=== PATIENT | male | born 1965 | race Caucasian/White ===

== ENCOUNTER 2017-01-22 00:25 | Observation (INO) | payer MEDICAID, OTHER ==
[2017-01-22] VITALS (10 sets, daily range): BP systolic 93–129; BP diastolic 52–74; PULSE 47–69; RESP 15–20; TEMP 97.5–98.5; O2SAT 95–99
[~2017-01-22] VITALS: Ht 182.9 cm; Wt 88.0 kg
[2017-01-22] MEDS ORDERED: SODIUM CHLORIDE 0.9% FLUSH 10 ML FLUSH IVF PRN (02:00)
[2017-01-22 02:36] LABS: AUTOMATED NEUTROPHIL # 11.1 TH/MM3 (1.8-7.7); BASOPHIL % 0.2 % (0.0-2.0); EOSINOPHIL # 0.1 TH/MM3 (0-0.4); EOSINOPHIL % 0.6 % (0.0-4.0); HEMATOCRIT 49.2 % (39.0-51.0); HEMO FLAGS DIFF FINAL; LYMPHOCYTE # 1.5 TH/MM3 (1.0-4.8); MEAN CELL VOLUME 95.4 FL (80.0-100.0); MEAN CORPUSCULAR HEMOGLOBIN 32.3 PG (27.0-34.0); MEAN CORPUSCULAR HGB CONC 33.8 % (32.0-36.0); MONO % 6.1 % (0.0-8.0); NEUT % 82.1 % (16.0-70.0); PLATELET COUNT 241 TH/MM3 (150-450); RED BLOOD COUNT 5.16 MIL/MM3 (4.50-5.90); RED CELL DISTRIBUTION WIDTH 13.2 % (11.6-17.2); WHITE BLOOD COUNT 13.5 TH/MM3 (4.0-11.0)
--- NOTE | 2017-01-22 03:05 | PD ---
HPI . Syncope Chief Complaint: Syncope/Near-Syncope Time Seen by Provider: 01:54 Travel History International Travel<30 days: No Contact w/Intl Traveler<30days: No Traveled to known affect area: No History of Present Illness HPI Patient presents following a syncopal event. He states that he was at work tonight and was standing up when he suddenly felt dizzy and had some mild blurred vision. He states that his legs got weak. He states that he stood there is again that he is probably going to be okay. The next thing that he knew, he woke up on the floor. He denies associated injury. He states that he feels fine now. He denies any chest pain. He denies any headache. He denies or vomiting. Bystanders didn't report that he was cool and clammy. reports that he may have had a similar episode within the last couple of months. They are not completely clear about that. PFSH Past Medical History Medical other: Yes (eye problem) Musculoskeletal: Yes (bursitis) Past Surgical History Tonsillectomy: Yes Social History Alcohol Use: Yes Tobacco Use: Yes (1ppd) Substance Use: Yes (marijuana) Allergies-Medications (Allergen,Severity, Reaction): Coded Allergies: Penicillin (Verified Allergy, Severe, 01/22/17) Reported Meds & Prescriptions Reported Meds & Active Scripts Active No Active Prescriptions or Reported Medications Review of Systems Except as stated in HPI: all other systems reviewed are Neg Eyes: Positive: Blurred Vision HENT: No: Headaches Cardiovascular: No: Chest Pain or Discomfort Respiratory: No: Shortness of Breath Gastrointestinal: No: Nausea, Vomiting Genitourinary: No: Incontinence Musculoskeletal: No: Myalgias, Arthralgias, Limited ROM Skin: Positive Other (reportedly cool and clammy following the event) Neurologic: Positive: Syncope, No: Focal Abnormalities, Ataxia, Headache, Slurred Speech, Paresthesia, Incontinence, Seizures Physical Exam Narrative GENERAL: This is a healthy-appearing man who is in no acute distress. SKIN: Warm and dry. HEAD: Atraumatic. Normocephalic. EYES: Pupils equal and round. Extraocular movements are intact. ENT: No nasal bleeding or discharge. Mucous membranes pink and moist. NECK: Trachea midline. Neck is supple. CARDIOVASCULAR: Regular rate and rhythm. He is noted to have some irregular beats. He was not on the monitor at the time that I was examining him so I cannot say for sure whether these were PACs or PVCs. RESPIRATORY: No accessory muscle use. His lungs are clear with full air movement throughout. GASTROINTESTINAL: Abdomen soft, non-tender, nondistended. There is no pulsatile abdominal mass. MUSCULOSKELETAL: No obvious deformities. No edema. NEUROLOGICAL: Awake and alert. No obvious cranial nerve deficits. Motor grossly within normal limits. Normal speech. PSYCHIATRIC: Appropriate mood and affect; insight and judgment normal. Data Data Last Documented VS Vital Signs Date Time Temp Pulse Resp B/P Pulse Ox O2 Delivery O2 Flow Rate FiO2 01/22/17 02:33 17 99 Room Air 01/22/17 00:29 98.5 69 129/74 Orders Electrocardiogram (01/22/17 01:54) Basic Metabolic Panel (Bmp) (01/22/17 01:54) Complete Blood Count With Diff (01/22/17 01:54) Ckmb (Isoenzyme) Profile (01/22/17 01:54) Troponin I (01/22/17 01:54) Ecg Monitoring (01/22/17 01:54) Iv Access Insert/Monitor (01/22/17 01:54) Oximetry (01/22/17 01:54) Sodium Chloride 0.9% Flush (Ns Flush) (01/22/17 02:00) D-Dimer (01/22/17 02:41) CKMB (01/22/17 02:20) CKMB% (01/22/17 02:20) Labs Laboratory Tests Test 01/22/17 02:20 White Blood Count 13.5 TH/MM3 Red Blood Count 5.16 MIL/MM3 Hemoglobin 16.6 GM/DL Hematocrit 49.2 % Mean Corpuscular Volume 95.4 FL Mean Corpuscular Hemoglobin 32.3 PG Mean Corpuscular Hemoglobin 33.8 % Concent Red Cell Distribution Width 13.2 % Platelet Count 241 TH/MM3 Mean Platelet Volume 7.9 FL Neutrophils (%) (Auto) 82.1 % Lymphocytes (%) (Auto) 11.0 % Monocytes (%) (Auto) 6.1 % Eosinophils (%) (Auto) 0.6 % Basophils (%) (Auto) 0.2 % Neutrophils # (Auto) 11.1 TH/MM3 Lymphocytes # (Auto) 1.5 TH/MM3 Monocytes # (Auto) 0.8 TH/MM3 Eosinophils # (Auto) 0.1 TH/MM3 Basophils # (Auto) 0.0 TH/MM3 CBC Comment DIFF FINAL Differential Comment D-Dimer Quantitative (PE/DVT) 0.30 MG/L FEU Sodium Level 140 MEQ/L Potassium Level 4.4 MEQ/L Chloride Level 103 MEQ/L Carbon Dioxide Level 33.0 MEQ/L Anion Gap 4 MEQ/L Blood Urea Nitrogen 13 MG/DL Creatinine 1.06 MG/DL Estimat Glomerular Filtration 73 ML/MIN Rate Random Glucose 75 MG/DL Calcium Level 10.2 MG/DL Total Creatine Kinase 120 U/L Creatine Kinase MB 1.6 NG/ML Troponin I LESS THAN 0.02 NG/ML MDM Medical Decision Making Medical Screen Exam Complete: Yes Emergency Medical Condition: Yes Medical Record Reviewed: Yes (no visits for any significant medical problems in the past) Interpretation(s) EKG shows a sinus rhythm with no ST segment elevation or depression. He has no old EKGs for comparison. Differential Diagnosis My differential diagnosis of syncope includes but is not limited to cardiac arrhythmia, hypovolemia, anemia, neurological catastrophe, vasovagal response Narrative Course Patient presents following a syncopal event. CBC & BMP Diagram 01/22/17 02:20 Initial cardiac enzymes are negative. D-dimer is normal. Diagnosis Primary Impression: Syncope Qualified Code: R55 - Syncope, unspecified syncope type Admitting Information Admitting Physician Requests: Observation Scripts No Active Prescriptions or Reported Meds Condition: Stable Araceli Lemos MD Jan 22, 2017 03:05
[2017-01-22 03:19] LABS: ANION GAP 4 MEQ/L (5-15); BLOOD UREA NITROGEN 13 MG/DL (7-18); CHLORIDE 103 MEQ/L (98-107); CREATINE KINASE 120 U/L (39-308); GLOMERULAR FILTRATION RATE 73 ML/MIN (>89); POTASSIUM 4.4 MEQ/L (3.5-5.1); SODIUM (NA) 140 MEQ/L (136-145)
[2017-01-22 04:04] LABS: CKMB 1.6 NG/ML (0.5-3.6)
[2017-01-22] MEDS ORDERED: ACETAMINOPHEN/HYDROcodone 325 MG/5 MG TAB PO PRN (04:30)
[2017-01-22] MEDS ORDERED: ONDANSETRON HCL 4 MG/2 ML VIAL IVP PRN (04:30)
[2017-01-22] MEDS ORDERED: SODIUM CHLORIDE 0.9% FLUSH 10 ML FLUSH IV FLUSH PRN (04:30)
[2017-01-22] MEDS ORDERED: ACETAMINOPHEN 325 MG TAB PO PRN (04:30)
[2017-01-22] MEDS ORDERED: MORPHINE SULFATE 4 MG/ML INJ IV PRN (04:30)
[2017-01-22] MEDS ORDERED: BISACODYL 10 MG SUPP RECTAL PRN (04:30)
[2017-01-22] MEDS: SODIUM CHLOR 0.9% 1000 ML INJ 1,000 ML IV SCH ×2 (04:46→17:47)
--- NOTE | 2017-01-22 04:54 | RADRPT ---
EXAM DATE/TIME: 01/22/2017 04:28 [facility] COMPARISON: No previous studies available for comparison. INDICATIONS : Dizziness; syncopal episode. MEDICAL HISTORY : None. SURGICAL HISTORY : None. ENCOUNTER: Initial ACUITY: 1 day PAIN SCORE: 0/10 LOCATION: Bilateral chest FINDINGS: The cardiac silhouette is normal in transverse diameter. The lungs are free of acute parenchymal opac ity. No effusions are identified. The aortic knob is prominent with tortuosity of the descending thor acic aorta. There are chronic fibrotic changes bilaterally. CONCLUSION: 1. No acute cardiopulmonary disease. Sanket Howard MD on January 22, 2017 at 4:51 Board Certified Radiologist. This report was verified electronically.
--- NOTE | 2017-01-22 05:14 | HHI.HP ---
[facility] Service [place] [facility] Primary Care Physician No Primary Care Physician Admission Diagnosis syncope Diagnoses: (1) Syncope Diagnosis: Principal (2) Bradycardia Diagnosis: Principal (3) Dehydration Diagnosis: Principal (4) Hypercalcemia Diagnosis: Principal (5) Leukocytosis (6) Tobacco abuse Diagnosis: Principal Travel History International Travel<30 Days: No Contact w/Intl Traveler <30 Da: No Traveled to Known Affected Are: No History of Present Illness This is a 51-year-old male with a PMH of Tobacco Abuse who presented to the ER after syncopal event. 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 EMS called, however pt had refused transport to ER. ultimately convinced him to be evaluated and he presented to ER. States similar event approx 2 months ago however pt doesn't recall specifics, "I think I passed out, but I'm not sure". On arrival, BP 129/74, HR 69, O2 sat 98% on RA, Afebrile. While in the ER, HR 40 to 50s. No h/o bradycardia, not currently on medication. WBC 13.5 mildly elevated neutrophil count. GFR 73. Calcium 10.2. Troponin negative. D-dimer negative. CXR with no acute findings. Patient currently without complaints. Review of Systems Except as stated in HPI: all other systems reviewed are Neg ROS: 14 point review of systems otherwise negative. Past Family Social History Past Medical History PMH: Tobacco Abuse Past Surgical History PAST SURGICAL HISTORY: Tonsillectomy Allergies: Coded Allergies: Penicillin (Verified Allergy, Severe, 01/22/17) Family History PAST FAMILY HISTORY: Reviewed. No h/o DM or CAD Social History PAST SOCIAL HISTORY: Occasional alcohol. Smokes 1ppd. Positive for Marijuana. Physical Exam Vital Signs Vital Signs Date Time Temp Pulse Resp B/P Pulse Ox O2 Delivery O2 Flow Rate FiO2 01/22/17 04:47 47 15 118/65 98 Room Air 01/22/17 02:33 17 99 Room Air 01/22/17 02:22 15 Room Air 01/22/17 00:29 98.5 69 16 129/74 98 Room Air Physical Exam PE: GENERAL: Extremely pleasant middle-aged white male in no acute distress. at bedside. HEENT: PERRLA, EOMI. No scleral icterus or conjunctival pallor. No lid lag or facial droop. CARDIOVASCULAR: Bradycardia. No obvious murmurs to auscultation. No chest tenderness to palpation. RESPIRATORY: No obvious rhonchi or wheezing. Clear to auscultation. Breath sounds equal bilaterally. GASTROINTESTINAL: Abdomen soft, non-tender, nondistended. BS normal. MUSCULOSKELETAL: Extremities without clubbing, cyanosis, or edema. No obvious deformities. NEUROLOGICAL: Awake, alert and oriented x4. No focal neurologic deficits. Moving both upper and lower extremities spontaneously. Laboratory Laboratory Tests Test 01/22/17 02:20 White Blood Count 13.5 Red Blood Count 5.16 Hemoglobin 16.6 Hematocrit 49.2 Mean Corpuscular Volume 95.4 Mean Corpuscular Hemoglobin 32.3 Mean Corpuscular Hemoglobin 33.8 Concent Red Cell Distribution Width 13.2 Platelet Count 241 Mean Platelet Volume 7.9 Neutrophils (%) (Auto) 82.1 Lymphocytes (%) (Auto) 11.0 Monocytes (%) (Auto) 6.1 Eosinophils (%) (Auto) 0.6 Basophils (%) (Auto) 0.2 Neutrophils # (Auto) 11.1 Lymphocytes # (Auto) 1.5 Monocytes # (Auto) 0.8 Eosinophils # (Auto) 0.1 Basophils # (Auto) 0.0 CBC Comment DIFF FINAL Differential Comment D-Dimer Quantitative (PE/DVT) 0.30 Sodium Level 140 Potassium Level 4.4 Chloride Level 103 Carbon Dioxide Level 33.0 Anion Gap 4 Blood Urea Nitrogen 13 Creatinine 1.06 Estimat Glomerular Filtration 73 Rate Random Glucose 75 Calcium Level 10.2 Total Creatine Kinase 120 Creatine Kinase MB 1.6 Troponin I LESS THAN 0.02 Result Diagram: 01/22/1721901/22/17219 Assessment and Plan Problem List: (1) Syncope ICD Code: R55 Status: Acute (2) Bradycardia ICD Code: R00.1 Status: Acute (3) Dehydration ICD Code: E86.0 Status: Acute (4) Hypercalcemia ICD Code: E83.52 Status: Acute (5) Leukocytosis ICD Code: D72.829 Status: Acute (6) Tobacco abuse ICD Code: Z72.0 Status: Acute Assessment and Plan A/P: 1. Syncope: acute c/o dizziness while at work w/ sudden syncopal event, no head trauma reported, no witnessed seizure activity. Trop negative, EKG w/ no acute ischemia. Likely multifactorial-secondary to dehydration compounded w/ bradycardia. Admit for Observation, telemetry, check serial cardiac enzymes, check Echo. Cardiology consult as needed. 2. Bradycardia: Unclear if symptomatic bradycardia, HR 69 on arrival, however while in ER HR persistently 40-50's. No h/o bradycardia in the past, not on medications. Telemetry, check Echo. 3. Dehydration: GFR 73, IVF for hydration, check U/a to eval for UTI. 4. Hypercalcemia: Ca 10.2, IVF, repeat labs in am. 5. Leukocytosis: WBC 13.5 w/ elevated neutrophil count, CXR w/ no acute findings, images reviewed by me. U/a pending, will follow. IVF, repeat labs in am. 6. Tobacco Abuse: Pt counselled. Ativan prn if needed. 7. DVT Prophylaxis: SCD/Teds. 8. Social work for d/c planning as needed. 9. Case discussed w/ ER physician at length. Problem Qualifiers (1) Syncope: Qualified Code: R55 - Syncope, unspecified syncope type Yeimi Matthews MD Jan 22, 2017 05:14
[2017-01-22 05:26] LABS: BLOOD, URINE NEG (NEG); COMMENT (UR) CULT NOT INDICATED; CULTURE IF INDICATED CULT NOT INDICATED; GLUCOSE,URINE 150 mg/dL (NEG); HYALINE CAST, URINE 6 /lpf (RARE); KETONE, URINE NEG (NEG); MUCUS URINE FEW /lpf (OCC); NITRITE,URINE NEG (NEG); PH, URINE 5.5 (5.0-8.5); SQUAMOUS EPITHELIAL CELL URINE <1 /hpf (0-5); URINE COLOR YELLOW (YELLW/STRAW)
[2017-01-22] MEDS: SODIUM CHLORIDE 0.9% FLUSH 10 ML FLUSH IV FLUSH SCH ×2 (09:00→20:53)
[2017-01-22 10:49] LABS: AUTOMATED NEUTROPHIL # 5.7 TH/MM3 (1.8-7.7); BASOPHIL % 0.2 % (0.0-2.0); EOSINOPHIL # 0.1 TH/MM3 (0-0.4); HEMATOCRIT 43.7 % (39.0-51.0); HEMO FLAGS DIFF FINAL; LYMPH % 22.1 % (9.0-44.0); LYMPHOCYTE # 1.8 TH/MM3 (1.0-4.8); MEAN CELL VOLUME 94.9 FL (80.0-100.0); MEAN CORPUSCULAR HEMOGLOBIN 32.2 PG (27.0-34.0); MEAN CORPUSCULAR HGB CONC 33.9 % (32.0-36.0); MONO % 6.5 % (0.0-8.0); NEUT % 70.2 % (16.0-70.0); PLATELET COUNT 227 TH/MM3 (150-450); RED BLOOD COUNT 4.61 MIL/MM3 (4.50-5.90); WHITE BLOOD COUNT 8.2 TH/MM3 (4.0-11.0)
[2017-01-22 11:02] LABS: BICARBONATE 28.4 MEQ/L (21.0-32.0); POTASSIUM 3.8 MEQ/L (3.5-5.1)
--- NOTE | 2017-01-22 14:00 | EKG ---
Date Performed: 01/22/2017 Time Performed: 02:09:24 PTAGE: 51 years EKG: SINUS BRADYCARDIA WITHIN NORMAL LIMITS NORMAL ECG NO PREVIOUS TRACING DOCTOR: Matt Larios Interpretating Date/Time 01/22/2017 13:59:54
[2017-01-23] VITALS (8 sets, daily range): BP systolic 95–107; BP diastolic 54–69; PULSE 40–68; RESP 18–21; TEMP 96.1–98.7; O2SAT 93–99
[2017-01-23] MEDS: SODIUM CHLOR 0.9% 1000 ML INJ 1,000 ML IV SCH (02:09)
[2017-01-23 04:43] LABS: AUTOMATED NEUTROPHIL # 4.1 TH/MM3 (1.8-7.7); BASOPHIL # 0.1 TH/MM3 (0-0.2); BASOPHIL % 0.7 % (0.0-2.0); EOSINOPHIL # 0.2 TH/MM3 (0-0.4); EOSINOPHIL % 2.7 % (0.0-4.0); HEMATOCRIT 42.5 % (39.0-51.0); HEMO FLAGS DIFF FINAL; LYMPH % 37.1 % (9.0-44.0); LYMPHOCYTE # 2.9 TH/MM3 (1.0-4.8); MEAN CELL VOLUME 95.1 FL (80.0-100.0); MEAN CORPUSCULAR HEMOGLOBIN 32.5 PG (27.0-34.0); MEAN CORPUSCULAR HGB CONC 34.2 % (32.0-36.0); MONO % 6.5 % (0.0-8.0); PLATELET COUNT 216 TH/MM3 (150-450); RED BLOOD COUNT 4.47 MIL/MM3 (4.50-5.90); RED CELL DISTRIBUTION WIDTH 13.2 % (11.6-17.2); WHITE BLOOD COUNT 7.7 TH/MM3 (4.0-11.0)
[2017-01-23 05:13] LABS: ALKALINE PHOSPHATASE 53 U/L (45-117); ALT (GPT) 24 U/L (12-78); ANION GAP 6 MEQ/L (5-15); AST (GOT) 14 U/L (15-37); BICARBONATE 28.5 MEQ/L (21.0-32.0); BLOOD UREA NITROGEN 12 MG/DL (7-18); CHLORIDE 106 MEQ/L (98-107); GLOMERULAR FILTRATION RATE 100 ML/MIN (>89); POTASSIUM 4.2 MEQ/L (3.5-5.1); SODIUM (NA) 140 MEQ/L (136-145); TOTAL BILIRUBIN ADULT 0.7 MG/DL (0.2-1.0)
[2017-01-23] MEDS: SODIUM CHLORIDE 0.9% FLUSH 10 ML FLUSH IV FLUSH SCH ×2 (08:36→19:48)
--- NOTE | 2017-01-23 11:28 | HHI.PR ---
Subjective Remarks Follow up syncope, and bradycardia. Patient seen and examined today. HR found to be low 38 at 8 am. Patient denies any symptoms at that time, no dizziness, no chest pain, no headaches. He states he had just fallen asleep when the RN came in. He says he last saw a Dr. 3-4 years ago and they said his HR was low but a healthy low. 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 He states the morning he passed out he only had a protein shake, and did not drink much fluids prior. 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 He says he has never seen a cardiology and denies any medical history. Objective Vitals Vital Signs Date Time Temp Pulse Resp B/P Pulse Ox O2 Delivery O2 Flow Rate FiO2 01/23/17 08:00 42 01/23/17 07:36 97.8 68 21 107/58 96 101/65 99/68 01/23/17 04:00 96.1 40 18 101/67 98 01/23/17 00:00 97.9 48 18 95/61 94 01/22/17 21:00 55 01/22/17 19:07 98.3 56 16 104/57 96 120/68 01/22/17 16:00 50 18 93/52 95 01/22/17 11:32 52 18 98/60 95 I/O 01/22/17 01/22/17 01/22/17 01/23/17 01/23/17 01/23/17 07:00 15:00 23:00 07:00 15:00 23:00 Intake Total 2972 ml Balance 2972 ml Intake Oral 500 ml IV Total 2472 ml # Voids 3 Result Diagram: 01/23/17 04301/23/17 043 Other Results Last Impressions Chest X-Ray 01/22/17 042 Signed Impressions: Service Date/Time: Sunday, January 22, 2017 04:28 - CONCLUSION: 1. No acute cardiopulmonary disease. Sanket Howard MD Objective Remarks GENERAL: Well nourished patient in no distress. SKIN: Warm and dry. HEAD: Normocephalic. EYES: No scleral icterus. No injection or drainage. NECK: Supple, trachea midline. No JVD or lymphadenopathy. CARDIOVASCULAR: Bradycardic rate and rhythm without murmurs, gallops, or rubs. RESPIRATORY: Breath sounds equal bilaterally. No accessory muscle use. GASTROINTESTINAL: Abdomen soft, non-tender, nondistended. MUSCULOSKELETAL: No cyanosis, or edema. No calf tenderness BACK: Nontender without obvious deformity. No CVA tenderness. Medications and IVs Current Medications Medications (Trade) Dose Ordered Sig/[place] Route Start Time Stop Time Status Last Admin (NS Flush) 2 ml UNSCH PRN IVF 01/22/17 02:00 (NS Flush) 2 ml UNSCH PRN IV FLUSH 01/22/17 04:30 (NS Flush) 2 ml BID IV FLUSH 01/22/17 09:00 (Zofran Inj) 4 mg Q6H PRN IVP 01/22/17 04:30 (Dulcolax Supp) 10 mg DAILY PRN RECTAL 01/22/17 04:30 (Tylenol) 650 mg Q6H PRN PO 01/22/17 04:30 ([place] 5-325 Mg) 1 tab Q4H PRN PO 01/22/17 04:30 (Morphine Inj) 2 mg Q3H PRN IV 01/22/17 04:30 Urinary Catheter: No Vascular Central Line Catheter: No A/P Problem List: (1) Syncope ICD Code: R55 Status: Acute (2) Bradycardia ICD Code: R00.1 Status: Acute (3) Dehydration ICD Code: E86.0 Status: Acute (4) Hypercalcemia ICD Code: E83.52 Status: Acute (5) Leukocytosis ICD Code: D72.829 Status: Acute (6) Tobacco abuse ICD Code: Z72.0 Status: Acute Assessment and Plan 51 y/o with no medical history presented to the ED after having a syncopal episode at work. He became dizzy at work, had weak legs and he then fell to the ground. He was found to have a low HR upon admission. Syncope: acute c/o dizziness while at work w/ sudden syncopal event, no head trauma reported, no witnessed seizure activity. Trop negative, EKG w/ no acute ischemia. Likely related to dehydration compounded w/ bradycardia. -monitor telemetry -Echo pending. Bradycardia, Unclear if symptomatic bradycardia, HR 69 on arrival, HR 38 at 8AM No h/o bradycardia in the past, not on medications. -Telemetry -Cardiology consulted -AT [address] Quinn at bedside, he recommended holding patient til morning, giving one liter NS for his slightly low blood pressure. He would like to have a 30 day Holter monitoring for the bradycardia, but due to lack of insurance it may be difficult. Case management to evaluate. Dehydration, GFR 73, improved to 100 UA negative -Cont IVF for hydration Hypercalcemia: Ca 10.2, IVF, -resolved Ca 8.6 Leukocytosis: WBC 13.5 w/ elevated neutrophil count, CXR w/ no acute findings, images reviewed by me. U/a pending, will follow. IVF, repeat labs in am. Tobacco Abuse, chronic -Pt counselled DVT Prophylaxis: SCD/Teds. Written by LOIS Johnson acting as scribe for Dr. Quezada on 01/23/17 at 10: 45. Discharge Planning Pending cardiology eval and 2d echo Attending Statement This note was transcribed by scribe Otilia Chau. I, Dr. Ailyn Quezada personally performed the history, physical exam, and medical decision making; and confirmed the accuracy of the information in the transcribed note. Authenticated by Dr. Ailyn Quezada on 01/23/17 at 22:25. Problem Qualifiers (1) Syncope: Qualified Code: R55 - Syncope, unspecified syncope type Otilia Chau Jan 23, 2017 11:09 Ailyn Quezada MD Jan 23, 2017 22:25
--- NOTE | 2017-01-23 16:26 | EC ---
Study Study Date:01/23/2017 STUDY CONCLUSIONS SUMMARY - Left ventricle: The cavity size was normal. Systolic function was normal. The estimated ejection fraction was in the range of 55% to 60%. Wall motion was normal; there were no regional wall motion abnormalities. The study is not technically sufficient to allow evaluation of LV diastolic function. - Pulmonary arteries: PA peak pressure: 39mm Hg (S). If LV function is below 40, please consider prescribing an ACEI or ARB or document rationale for non-use. PROCEDURE DATA STUDY STATUS: Elective. Procedure: Transthoracic echocardiography. Image quality was good. Scanning was performed from the parasternal, apical, and subcostal acoustic windows. Study completion: The patient tolerated the procedure well. Transthoracic echocardiography. M-mode, complete 2D, complete spectral Doppler, and color Doppler. Patient status: Inpatient. CARDIAC ANATOMY LEFT VENTRICLE: The cavity size was normal. Systolic function was normal. The estimated ejection fraction was in the range of 55% to 60%. Wall motion was normal; there were no regional wall motion abnormalities. The study is not technically sufficient to allow evaluation of LV diastolic function. AORTIC VALVE: Probably trileaflet. Doppler: There was no stenosis. No significant regurgitation. MITRAL VALVE: The valve appears to be grossly normal. Doppler: There was no evidence for stenosis. Trace regurgitation. LEFT ATRIUM: The atrium was normal in size. RIGHT VENTRICLE: The cavity size was normal. PULMONIC VALVE: Not well visualized. Doppler: There was no evidence for stenosis. No significant regurgitation. TRICUSPID VALVE: The valve appears to be grossly normal. Doppler: There was no evidence for stenosis. Trace regurgitation. PERICARDIUM: There was no pericardial effusion. BASIC MEASUREMENTS ADULT Normal Left ventricle LV internal dimension, ED, chordal level, *39.3 mm 43-52 PLAX LV internal dimension, ES, chordal level, 28.5 mm 23-38 PLAX Fractional shortening, chordal level, PLAX *27 % >29 LV posterior wall thickness, ED 10.3 mm IVS/LVPW ratio, ED *1.73 <1.3 Ventricular septum Septal thickness, ED 17.8 mm Aortic valve Leaflet separation 23 mm 15-26 Right ventricle RV internal dimension, ED, PLAX 27.8 mm 19-38 BASIC MEASUREMENTS ADULT Normal Aortic valve Leaflet separation 23 mm 15-26 Aorta Root diameter, ED 34 mm 20-37 Left atrium Anterior-posterior dimension, ES 31 mm 19-40 LA/aortic root ratio 0.91 DOPPLER MEASUREMENTS ADULT Normal Main pulmonary artery Pressure, S *39 mm Hg =30 Tricuspid valve Regurgitant peak velocity 267 cm/s Peak RV-RA gradient, S 29 mm Hg Maximal regurgitant velocity 267 cm/s Systemic veins Estimated CVP 10 mm Hg Right ventricle RV pressure, S *39 mm Hg <30 LEGEND: Mean values are shown as u=mean value. Asterisk (*) castro values outside specified normal range. Prepared and signed by Adan Quinn [id number]
[2017-01-23] MEDS ORDERED: SODIUM CHLOR 0.9% 1000 ML INJ 1,000 ML IV SCH (17:00)
--- NOTE | 2017-01-23 17:33 | RADRPT ---
EXAM DATE/TIME: 01/23/2017 17:16 [facility] COMPARISON: No previous studies available for comparison. INDICATIONS : Posterior neck pain, fell MEDICAL HISTORY : None. SURGICAL HISTORY : None. ENCOUNTER: Initial ACUITY: 2 days PAIN SCORE: 3/10 LOCATION: Cervical spine FINDINGS: No appreciable subluxation or soft tissue swelling is seen. Degenerative spondylosis is present at C 5-6 and C6-7 and to a slight degree. IMPRESSION: Unremarkable limited study except for degenerative spondylosis. Ana Rosa Knight MD on January 23, 2017 at 17:30 Board Certified Radiologist. This report was verified electronically.
--- NOTE | 2017-01-23 17:34 | RADRPT ---
EXAM DATE/TIME: 01/23/2017 17:20 [facility] COMPARISON: No previous studies available for comparison. INDICATIONS : Right posterior elbow pain, fell MEDICAL HISTORY : None. SURGICAL HISTORY : None. ENCOUNTER: Initial ACUITY: 2 days PAIN SCORE: 2/10 LOCATION: Right Elbow FINDINGS: No definite fractures, or dislocations are identified. No definite lytic or sclerotic lesion is seen . Soft tissue swelling is seen. IMPRESSION: Unremarkable study except for soft tissue swelling. Ana Rosa Knight MD on January 23, 2017 at 17:32 Board Certified Radiologist. This report was verified electronically.
[2017-01-24 05:46] VITALS: BP 110/67; PULSE 47; RESP 18; TEMP 98.4; O2SAT 97
--- NOTE | 2017-01-24 07:35 | MB ---
cc: ADAN PAGAN DO DATE OF CONSULTATION 01/23/2017 REASON FOR CONSULTATION Syncope HISTORY OF PRESENT ILLNESS Kavon Vázquez is a pleasant 51-year-old male who presents to [facility] on January 22, 2017 due to a syncopal episode. He states that he has had an extremely busy week between working two jobs and having three kids, but in general this is what his weeks have been like. 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 He was standing at one of the tables when he started feeling somewhat lightheaded. He had mild blurry vision with this. He then leaned against the table and was doing alright at that time, but then started getting weak in the legs. He denies any chest pain or palpitations with the event. He then ended up losing consciousness and falling backwards. He had no loss of bowel or bladder, although someone at the table did mention a questionable seizure activity, but no documentation of this just hearsay from the patient's boss to his . The day that he passed out, he felt like ate his usual amount, but did not keep up with his fluids lately. In seeing him this morning, he feels relatively fine. He has been up and walking without complaints. Orthostatics were done in the emergency room and did have a drop in systolic and this is after receiving IV fluids within the emergency room. Lastly, he had an episode overnight where his heart rate was around 38. Upon arrival of the ER staff, he was asymptomatic and felt no lightheadedness. His does report that he may have had an episode a few months ago. It is difficult to place when this happened per him and his and at that time, the patient had no idea where he was and states he may have passed out. It extremely difficult to get more information about this episode as he and his are unsure of where it happened and when it happened. The patient states that he remembers nothing from the episode. PAST MEDICAL HISTORY Tobacco abuse PAST SURGICAL HISTORY Tonsillectomy ALLERGIES PENICILLIN MEDICATIONS Denies SOCIAL HISTORY Smokes one-pack of cigarettes per day. He has a history of marijuana use. Drinks socially. FAMILY HISTORY Denies premature coronary artery disease or sudden cardiac within the family. REVIEW OF SYSTEMS 14-systems were reviewed including osteopathic pertinent positives and negatives as above, otherwise negative. PHYSICAL EXAMINATION VITAL SIGNS: Temperature 98.0, heart rate 52, blood pressure 101/57, respirations 18, pulse ox 98% on room air. GENERAL: The patient appears well in no acute distress, alert awake and oriented x3. HEAD, EYES, EARS, NOSE, AND THROAT: Extraocular muscles intact. Mucous membranes moist. NECK: Supple. No JVD at 45 degrees. No carotid bruits heard bilaterally. Carotid upstroke is brisk in nature. HEART: Regular rhythm, but mildly bradycardic. LUNGS: Clear to auscultation bilaterally. No wheezes, rales or rhonchi. ABDOMEN: Soft, nontender sent no organomegaly noted. EXTREMITIES: Show no clubbing, cyanosis or edema. Femoral and distal pulses intact bilaterally. NEUROLOGIC: No focal deficits. SKIN: Warm, dry and intact. OSTEOPATHICALLY: No kyphoscoliosis, lordosis or paraspinal tender points. LABORATORY FINDINGS Hemoglobin 14.5, hematocrit 42.5, platelets 216. Troponin negative x3. Potassium 4.2, BUN 12, creatinine 0.81, calcium 10.2. Electrocardiogram (January 22, 2017 at 0209) sinus bradycardia at 50 beats per minute. No acute ST-T wave changes. IMPRESSION 1. Syncopal episode possibly due to combination of dehydration, orthostatic hypotension, and bradycardia. 2. Chronic bradycardia for which the patient is most likely asymptomatic. 3. Dehydration 4. Hypercalcemia most likely due to dehydration. 5. Tobacco abuse 6. Positive orthostatic hypotension. RECOMMENDATIONS 1. Kavon Vázquez appears to have had two syncopal episodes. The first episode a few weeks ago is difficult to ascertain exactly why this happened as the patient has no real recollection of it and the does not remember when it happened and did not know where he was at the time. 2. The most recent episode seems to be more along the lines of orthostatic hypotension and blood pooling due to standing for long period of time as well as dehydration. 3. As far as his bradycardia goes, he has always had a low heart rate. Even when his heart rate was in the 30s, he seemed to be asymptomatic from this and this has then less likely to cause a true syncopal event. I would like to put in an event monitor on him for 30 days, but he does not have insurance which does make this more difficult. We will consider a Holter monitor for 24 hours. 4. He has received one liter of normal saline and in revisiting him this afternoon, he still has some mild hypotension (the patient states is normal blood pressure is around 110/60 with his current blood pressure being around 95/55. In discussing with him, we will plan on giving him another liter of fluid and have him continue to walk around to make sure that he feels alright. 5. Would avoid hypotensive and AV blocking AV ponce blocking agents. 6. Echocardiogram showing an ejection fraction of 55-60%. 7. If stable in the morning, we will plan for discharge with a consideration of a Holter monitor so that we can see what his heart rate does during normal activity. 8. I spoke to him for greater than three minutes about tobacco cessation which he will attempt to quit. Thank you for allowing me to see Kavon Vázquez. If there are any questions, please do not hesitate to call. Adan Pagan DO VGP/DJL /10:08 PM /7:19 AM
--- NOTE | 2017-01-24 07:59 | HHI.DCPOC ---
Discharge Care Plan Diagnosis: (1) Syncope (2) Bradycardia (3) Dehydration (4) Tobacco abuse Goals to Promote Your Health * To prevent worsening of your condition and complications * To maintain your health at the optimal level Directions to Meet Your Goals Take your medications as prescribed Follow your dietary instruction Follow activity as directed Keep your appointments as scheduled Take your immunizations and boosters as scheduled If your symptoms worsen call your PCP, if no PCP go to Urgent Care Center or Emergency Room Smoking is Dangerous to Your Health. Avoid second hand smoke Call the 24-hour hour crisis hotline for domestic abuse at Jasmyne Betancur PA-C Jan 24, 2017 07:59
[2017-01-24 08:00] VITALS: PULSE 43
--- NOTE | 2017-01-24 08:20 | PD.CARD.PN ---
Subjective Subjective Remarks Feels well Up and ambulating without problem No chest pain, no shortness of breath Objective Medications Current Medications Medications (Trade) Dose Ordered Sig/[place] Route Start Time Stop Time Status Last Admin (NS Flush) 2 ml UNSCH PRN IVF 01/22/17 02:00 (NS Flush) 2 ml UNSCH PRN IV FLUSH 01/22/17 04:30 (NS Flush) 2 ml BID IV FLUSH 01/22/17 09:00 (Zofran Inj) 4 mg Q6H PRN IVP 01/22/17 04:30 (Dulcolax Supp) 10 mg DAILY PRN RECTAL 01/22/17 04:30 (Tylenol) 650 mg Q6H PRN PO 01/22/17 04:30 ([place] 5-325 Mg) 1 tab Q4H PRN PO 01/22/17 04:30 (Morphine Inj) 2 mg Q3H PRN IV 01/22/17 04:30 Vital Signs / I&O Vital Signs Date Time Temp Pulse Resp B/P Pulse Ox O2 Delivery O2 Flow Rate FiO2 01/24/17 05:46 98.4 47 18 110/67 97 01/23/17 23:54 98.7 51 18 101/63 93 01/23/17 20:00 98.6 56 18 99/54 96 101/69 97/66 01/23/17 16:26 98.1 53 21 95/57 99 01/23/17 11:12 98.0 52 18 101/57 98 I/O 01/23/17 01/23/17 01/23/17 01/24/17 01/24/17 01/24/17 07:00 15:00 23:00 07:00 15:00 23:00 Intake Total 2972 ml Balance 2972 ml Intake Oral 500 ml IV Total 2472 ml # Voids 3 Physical Exam GENERAL: NAD, AAOx3 SKIN: Warm and dry. HEAD: Atraumatic. Normocephalic. EYES: Pupils equal and round. No scleral icterus. No injection or drainage. ENT: No nasal bleeding or discharge. Mucous membranes pink and moist. NECK: Trachea midline. No JVD. CARDIOVASCULAR: Regular rhythm, bradycardic RESPIRATORY: No accessory muscle use. Clear to auscultation. Breath sounds equal bilaterally. GASTROINTESTINAL: Abdomen soft, non-tender, nondistended. Hepatic and splenic margins not palpable. MUSCULOSKELETAL: Extremities without clubbing, cyanosis, or edema. No obvious deformities. NEUROLOGICAL: Awake and alert. No obvious cranial nerve deficits. Motor grossly within normal limits. Five out of 5 muscle strength in the arms and legs. Normal speech. PSYCHIATRIC: Appropriate mood and affect; insight and judgment normal. Assessment and Plan Problem List: (1) Syncope (2) Bradycardia (3) Dehydration (4) Tobacco abuse Assessment and Plan 1) Syncope most likely combination of dehydration, orthostatic hypotension and bradycardia... rehydrated with 2L NS 2) Currently up and ambulating without problem, blood pressure better than yesterday 3) Still has baseline bradycardia but is asymptomatic from that standpoint, avoid AV ponce blockers 4) Discussed with him about sleep apnea work-up, states that he snores and he occasionally feels tired but felt it was due to 2 jobs and 3 kids 5) EF 55-60% by echo 6) Will wear Holter monitor for 24 hours, but no blocks noted here 7) Cardiovascularly stable for discharge Problem Qualifiers (1) Syncope: Qualified Code: R55 - Syncope, unspecified syncope type Adan Quinn DO Jan 24, 2017 08:20
[2017-01-24 08:47] VITALS: BP 94/51; PULSE 43; RESP 18; TEMP 97.8; O2SAT 97
--- NOTE | 2017-01-24 09:00 | HHI.DS ---
Discharge Summary Admission Date Jan 22, 2017 at 4:23 am Discharge Date: Jan 24, 2017 Admitting Diagnosis syncope (1) Syncope ICD Code: R55 Diagnosis: Principal (2) Bradycardia ICD Code: R00.1 Diagnosis: Principal (3) Dehydration ICD Code: E86.0 Diagnosis: Secondary (4) Hypercalcemia ICD Code: E83.52 Diagnosis: Secondary (5) Leukocytosis ICD Code: D72.829 Diagnosis: Secondary (6) Tobacco abuse ICD Code: Z72.0 Diagnosis: Secondary Procedures None. Brief History - From Admission This is a 51-year-old male with a PMH of Tobacco Abuse who presented to the ER after syncopal event. 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 EMS called, however pt had refused transport to ER. ultimately convinced him to be evaluated and he presented to ER. States similar event approx 2 months ago however pt doesn't recall specifics, "I think I passed out, but I'm not sure". On arrival, BP 129/74, HR 69, O2 sat 98% on RA, Afebrile. While in the ER, HR 40 to 50s. No h/o bradycardia, not currently on medication. WBC 13.5 mildly elevated neutrophil count. GFR 73. Calcium 10.2. Troponin negative. D-dimer negative. CXR with no acute findings. Patient currently without complaints. CBC/BMP: 01/23/17 0430 01/23/17 0430 Significant Findings Laboratory Tests Test 01/22/17 01/22/17 01/22/17 01/22/17 02:20 04:45 09:40 15:16 White Blood Count 13.5 TH/MM3 (4.0-11.0) Neutrophils (%) (Auto) 82.1 % 70.2 % (16.0-70.0) (16.0-70.0) Neutrophils # (Auto) 11.1 TH/MM3 (1.8-7.7) Carbon Dioxide Level 33.0 MEQ/L (21.0-32.0) Anion Gap 4 MEQ/L (5-15) Estimat Glomerular Filtration 73 ML/MIN (>89) Rate Calcium Level 10.2 MG/DL (8.5-10.1) Troponin I LESS THAN 0.02 LESS THAN 0.02 LESS THAN 0.02 NG/ML NG/ML NG/ML (0.02-0.05) (0.02-0.05) (0.02-0.05) Urine Glucose (UA) 150 mg/dL (NEG) Urine Mucus FEW /lpf (OCC) Test 01/23/17 04:30 Red Blood Count 4.47 MIL/MM3 (4.50-5.90) Aspartate Amino Transf 14 U/L (15-37) (AST/SGOT) Total Protein 5.9 GM/DL (6.4-8.2) Albumin 3.2 GM/DL (3.4-5.0) Imaging Last Impressions Chest X-Ray 01/22/17 0075 Signed Impressions: Service Date/Time: Sunday, January 22, 2017 04:28 - CONCLUSION: 1. No acute cardiopulmonary disease. Sanket Howard MD PE at Discharge GENERAL: Well nourished patient in no distress. SKIN: Warm and dry. HEAD: Normocephalic. EYES: No scleral icterus. No injection or drainage. NECK: Supple, trachea midline. No JVD or lymphadenopathy. CARDIOVASCULAR: Bradycardic rate and rhythm without murmurs, gallops, or rubs. RESPIRATORY: Breath sounds equal bilaterally. No accessory muscle use. GASTROINTESTINAL: Abdomen soft, non-tender, nondistended. MUSCULOSKELETAL: No cyanosis, or edema. No calf tenderness BACK: Nontender without obvious deformity. No CVA tenderness. Pt update on day of discharge Follow up for syncope, bradycardia. The patient reports feeling well again today. Denies any lightheadedness or dizziness. Denies any other medical complaints at this time. Hospital Course 51 y/o with no medical history presented to the ED after having a syncopal episode at work. He became dizzy at work, had weak legs and he then fell to the ground. He was found to have a low HR upon admission. Syncope: acute c/o dizziness while at work w/ sudden syncopal event, no head trauma reported, no witnessed seizure activity. Likely related to dehydration compounded w/ bradycardia, see below. ACS ruled out with negative serial cardiac enzymes x3 and EKG w/ no acute ischemia. Monitor on telemetry. Echocardiogram with normal systolic function, EF 55-60%. Orthostatics negative however patient with low blood pressure at baseline. Given IV fluids. Blood pressure improved. No further lightheadedness/syncopal. Bradycardia, Unclear if symptomatic bradycardia, HR 69 on arrival, heart rate into upper 30s while sleeping, mostly upper 40s-50s. Not on BB. Patient reports history of "low" heart rate in the past. EKG with sinus emiliano. Monitor on telemetry. Cardiology consulted, discussed with Dr. Quinn, cleared for discharge, recommends Holter monitor prior to discharge, may need event monitor vs Loop recorder as outpatient however may be difficult due to lack of insurance. Dehydration, GFR 73, improved to 100 s/p IVF. UA negative. Hypercalcemia: Ca 10.2, Given IVF, resolved Ca 8.6 Leukocytosis: WBC 13.5 w/ elevated neutrophil count, CXR w/ no acute findings, images reviewed by me. UA negative IVF, repeat labs show improvement WBC 7.7K. Resolved. Tobacco Abuse: chronic, counselled on cessation. DVT Prophylaxis: SCD/Teds. Written by Jasmyne Betancur, acting as scribe for Dr. Quezada on 01/24/17 at 10: 50. Pt Condition on Discharge: Stable Discharge Disposition: Discharge Home Discharge Time: > 30 minutes Discharge Instructions DIET: Follow Instructions for: Heart Healthy Diet Activities you can perform: Regular-No Restrictions Follow up Referrals: Cardiology - 1 Week with Adan Quinn DO PCP Follow-up - 1 Week Medication Profile: No Active Prescriptions or Reported Meds Additional Information This note was transcribed by scribe Jasmyne Betancur. I, Dr. Ailyn Quezada personally performed the history, physical exam, and medical decision making; and confirmed the accuracy of the information in the transcribed note. Jasmyne Betancur PA-C Jan 24, 2017 09:00 Ailyn Quezada MD Jan 24, 2017 18:54
[2017-01-24] MEDS ORDERED: IBUPROFEN 400 MG TAB PO ONE (11:00)
[2017-01-24 11:58] VITALS: BP 114/58; PULSE 51; RESP 18; TEMP 98.8; O2SAT 97
--- NOTE | 2017-01-26 14:02 | HM ---
Date Performed: 01/24/2017 Time Performed: 15:33:00 HOOKUP DATE: 01/24/17 03:33:00 PM Tue ANALYSIS START TIME: 01/24/2017 3:38:00 PM ANALYSIS END TIME: 01/25/2017 3:41:59 PM PATIENT AGE: 51 PATIENT HEIGHT PATIENT WEIGHT DRUG LIST PATIENT DIAGNOSIS TEST NARRATIVE: The patient's average heart rate was 54 BPM. No episodes of tachycardia wer e noted. Heart rates less than 50 BPM were noted 47% of the time. 4 pauses exceeding 2.0 second s were noted. The longest pause of 2.0 seconds occurred at 06:06:12 AM Wed. 2190 ventricular ecto pics, which represented 3% of the total beat count, were noted. The highest ventricular ectopic freq uency occurred from 10:00 AM to 11:00 AM Wed. During this time 372 VE(s) occurred. Ventricular ecto pics were observed as 2165 isolated beat(s), as 11 couplet(s) and as 1 run(s). Some of the ventricul ar beats occurred in bigeminal cycles. 27 supraventricular ectopics, which represented < 1% of th e total beat count, were noted. The highest supraventricular ectopic frequency occurred from 10:00 A M to 11:00 AM Wed. During this time 6 SVE(s) occurred. No episodes of ST depression (defined as -1.0 mm or more) were noted in channel 1. No episodes of ST depression (defined as -1.0 mm or more) were noted in channel 2. No episodes of ST depression (defined as -1.0 mm or more) were noted in mile nnel 3. TEST INTERPRETATION: This demonstrates a sinus mechanism with sinus bradycardia at 36 bpm at 4:4 1am. Rare PVCs and PACs were noted. There was a rare ventricular couplet and one triplet was noted at 7:57. No evidence for atrial fibrillation or significant pauses were present. There was no diary available. Signed by : Sanket ospina
== END 2017-01-24 17:50 | disposition home or self-care (01) ==
LOC: NEPC 00:25 → NEDA 04:23 → NEPHCDU 05:08
PROVIDERS: ADMIT Family Medicine; ATTEND Family Medicine
DX: I95.1 Orthostatic hypotension (principal); R00.1 Bradycardia, unspecified; E86.0 Dehydration; E83.52 Hypercalcemia; D72.829 Elevated white blood cell count, unspecified; Z88.0 Allergy status to penicillin; F17.210 Nicotine dependence, cigarettes, uncomplicated
CPT/HCPCS: 71020; 72040; 73080; 80048; 80053; 81001; 82550; 82552; 84484; 85025; 85379; 93005; 93225; 93226; 93306; 99285; G0378; J7030